=== PATIENT | female | born 1980 | race Caucasian/White ===

== ENCOUNTER 2024-01-23 09:37 | Day surgery (SDC) | payer OTHER ==
[2024-01-23] MEDS: Lactated Ringers 1,000 ML IV SCH (09:50)
[2024-01-23] MEDS ORDERED: fentaNYL 100 MCG/2 ML SDV ONE (09:52)
[2024-01-23] MEDS ORDERED: Propofol 200 MG/20 ML SDV ONE (09:52)
[2024-01-23 11:03] VITALS: PULSE 88
[2024-01-23 11:07] VITALS: BP 109/68
== END 2024-01-23 11:53 | disposition home or self-care (01) ==
LOC: VM.SDS 09:37
PROVIDERS: ATTEND Student in an Organized Health Care Education/Training Program
DX: K29.50 Unspecified chronic gastritis without bleeding (principal); K20.0 Eosinophilic esophagitis; R13.10 Dysphagia, unspecified; F17.210 Nicotine dependence, cigarettes, uncomplicated; Z90.710 Acquired absence of both cervix and uterus
CPT/HCPCS: 00731; J2704; J3010; J7120